=== PATIENT | female | born 1990 | race Caucasian/White ===

== ENCOUNTER → 2018-07-22 | Outpatient (CLI) | payer BC ==
[2018-07-22 11:36] LABS: Basophils % (A) 1 %; Eosinophils # (A) 0.2 k/uL (0-0.7); Eosinophils % (A) 2 %; HCT 35.6 % (34.0-46.0); Lymphocytes # (A) 1.5 k/uL (1.0-4.8); Lymphocytes % (A) 20 %; MCH 28.9 pg (25.0-35.0); MCHC 33.7 g/dL (31.0-37.0); MCV 85.8 fL (80.0-100.0); Mean Platelet Volume 7.5; Monocytes # (A) 0.4 k/uL (0-1.0); Monocytes % (A) 6 %; Neutrophils # (A) 5.1 k/uL (1.3-7.7); Neutrophils % (A) 70 %; Platelet Count 298 k/uL (150-450); RBC 4.15 m/uL (3.80-5.40); RDW 13.9 % (11.5-15.5); WBC 7.4 k/uL (3.8-10.6)
== END | disposition home or self-care (01) ==
LOC: LABPAT 10:50
PROVIDERS: ATTEND Obstetrics & Gynecology
DX: Z01.812 Encounter for preprocedural laboratory examination (principal)
CPT/HCPCS: 85025; 86850; 86900; 86901

== ENCOUNTER 2018-07-23 05:45 | Day surgery (SDC) | payer BC ==
[2018-07-22 11:34] VITALS: BMI 27.4
--- NOTE | 2018-07-22 19:01 | P.HPOB ---
History of Present Illness H&P Date: 07/22/18 Chief Complaint: Missed This is a 27-year-old female 2 para 1 with a demise diagnosed on ultrasound today. Fetus was measuring 10 weeks 5 days with no heart tones. She presented for routine visit today and was having no complaints of bleeding or cramping. She should've been 12 weeks 1 day by her last menstrual period. She did have an earlier ultrasound at 8 weeks that showed positive heart tones. She was given options of expectant management versus dilation and curettage. She wishes to proceed with surgery. Blood type is A+. Obstetrical history: . History of 1 vaginal delivery at term. Gynecologic history: No history of sexual transmitted diseases. Social history: She is . 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 Review of Systems Constitutional: Denies chills, Denies fever Eyes: denies blurred vision, denies pain Ears, nose, mouth and throat: Denies headache, Denies sore throat Cardiovascular: Denies chest pain, Denies shortness of breath Respiratory: Denies cough Gastrointestinal: Denies abdominal pain Genitourinary: Reports , Denies abnormal vaginal bleeding, Denies pelvic pain Musculoskeletal: Denies myalgias Integumentary: Denies pruritus, Denies rash Neurological: Denies numbness, Denies weakness Past Medical History Past Medical History: Asthma Additional Past Medical History / Comment(s): missed ,sport induced asthma as a child History of Any Multi-Drug Resistant Organisms: None Reported Additional Past Surgical History / Comment(s): wisdom teeth Past Anesthesia/Blood Transfusion Reactions: No Reported Reaction, Family History of Problems w/ Anesthesia Additional Past Anesthesia/Blood Transfusion Reaction / Comment(s): mom has had PONV Past Psychological History: No Psychological Hx Reported Smoking Status: Never smoker Past Alcohol Use History: Occasional Past Drug Use History: None Reported - Past Family History Mother Family Medical History: Thyroid Disorder Medications and Allergies Home Medications Medication Instructions Recorded Confirmed Type Pnv No.95/Ferrous Fum/Folic AC 1 each PO DAILY 07/22/18 07/22/18 History [ Multivitamin Tablet] Allergies Allergy/AdvReac Type Severity Reaction Status Date / Time No Known Allergies Allergy Verified 07/22/18 11:28 Exam Osteopathic Statement: *. No significant issues noted on an osteopathic structural exam other than those noted in the History and Physical/Consult. Intake and Output 07/22/18 07/22/18 07/22/18 06:59 14:59 22:59 Other: Weight 77.111 kg HEENT: Within normal limits Heart: Regular rate and rhythm Lungs: Clear to auscultation bilaterally Abdomen: Soft, nontender Pelvic exam: Uterus is slightly enlarged, nontender, retroverted, with no adnexal masses or tenderness noted. Extremities: Negative Homans Assessment and Plan (1) Missed Status: Acute Code(s): O02.1 - MISSED SNOMED Code(s): 99388556 Plan: Proceed with suction dilation and curettage. I have discussed the risks, benefits, and alternative therapies for the above- mentioned procedure and for both sedation/anesthesia as well as necessary blood products administration, if indicated, as they pertain to this patient. The patient has indicated her understanding and acceptance of the risks and procedures discussed.
[~2018-07-23 05:45] MED LIST: DEXAMETHASONE SOD PHOSPHATE 10 MG/ML 1 ML VIAL IV ONE; HYDROmorphone 0.5 MG/0.5 ML SYRINGE IVP PRN; LACTATED RINGERS 1,000 ML IV SCH; LIDOCAINE 1% 20 ML VIAL (10MG/ML) FOR IV START INTRADERMA PRN; MIDAZOLAM 2 MG/2 ML VIAL IV PRN; ONDANSETRON 4 MG/2 ML VIAL IVP ONE; Pre Op ABX Message 1 EACH MISC MISCELLANE ONE; SCOPOLAMINE 1.5MG/72HR PATCH TRANSDERM ONE
[2018-07-23] MEDS ORDERED: LIDOCAINE 1% INJ 10MG/ML (20 ML MDV) ONE (07:00)
[2018-07-23] MEDS ORDERED: MIDAZOLAM 2 MG/2 ML VIAL ONE (07:00)
[2018-07-23] MEDS ORDERED: KETOROLAC 30 MG/ML 1 ML VIAL ONE (07:00)
[2018-07-23] MEDS ORDERED: fentaNYL (PF) 50 MCG/ML 2 ML AMP ONE (07:00)
[2018-07-23] MEDS ORDERED: PROPOFOL 10 MG/ML 20 ML VIAL IV ONE (07:00)
--- NOTE | 2018-07-23 07:35 | P.OP ---
Date of Procedure: 07/23/18 Preoperative Diagnosis: Missed Postoperative Diagnosis: Same Procedure(s) Performed: Suction dilation and curettage Anesthesia: other (Mask general) Surgeon: Neeta Garay Estimated Blood Loss (ml): 50 Pathology: other (Products of conception) Condition: stable Disposition: same day Indications for Procedure: This is a 27-year-old female 2 para 1 with a demise diagnosed on ultrasound today. Fetus was measuring 10 weeks 5 days with no heart tones. She presented for routine visit today and was having no complaints of bleeding or cramping. She should've been 12 weeks 1 day by her last menstrual period. She did have an earlier ultrasound at 8 weeks that showed positive heart tones. She was given options of expectant management versus dilation and curettage. She wishes to proceed with surgery. Blood type is A+. Operative Findings: Uterus is retroverted and sounded to 14 cm. A large amount of products of conception are obtained. Description of Procedure: The patient was taken to the operating room she's placed in the dorsal lithotomy position. She is prepped and draped in the normal sterile fashion. Bladder is drained with a catheter and then removed. Examination is performed under anesthesia. Uterus is found to be enlarged and retroverted. No adnexal masses are palpated. Next a weighted speculum was placed in the patient's vagina. A right angle retractor was used to visualize the anterior lip of the cervix. The cervix was grasped with a single-tooth tenaculum. Next the uterus is sounded to 14 cm. Cervix is gently dilated with Serrano dilators. I attempted to place a 12 mm she curette but it would not through her cervix. I next attempted to place an 11 mm suction curet but this curette appeared to be cracked. I next used a 10 mm curved suction curet and was able to place a easily. Suction curetting was carried out with a large amount of tissue obtained. Next a large sharp curette was placed and minimal further tissue was obtained. Suction curetting was performed one further time to remove any blood clot. Uterus did contract fairly well. Her bleeding did slow. The single- tooth tenaculum did pull off one time in cause a small laceration in the anterior lip of the cervix. Once the tenaculum is removed this was repaired with 3-0 Vicryl suture in a running locked fashion. Good hemostasis was noted. All instruments are removed from the vagina. All sponge and needle counts are correct. Patient is then taken to recovery room in stable condition.
[2018-07-23 07:52] VITALS: TEMP 97
[2018-07-23 08:05] VITALS: RESP 16
[2018-07-23 09:21] VITALS: BP 98/67; PULSE 83
== END 2018-07-23 09:32 | disposition home or self-care (01) ==
LOC: OR 05:45
PROVIDERS: ATTEND Obstetrics & Gynecology
DX: O02.1 Missed abortion (principal); Z3A.10 10 weeks gestation of pregnancy
CPT/HCPCS: 88305; 59820; J2250; J1100; J2405; J2001; J3010; J1885; J2704

== ENCOUNTER 2018-07-27 12:53 | Emergency (ER) | payer BC ==
[2018-07-27] MEDS ORDERED: SODIUM CHLORIDE 0.9% 1,000 ML IV STA (14:31)
--- NOTE | 2018-07-27 15:06 | ED ---
General Adult HPI - General Chief complaint: Vaginal Bleeding Stated complaint: Bleeding Source: patient, RN notes reviewed, old records reviewed Mode of arrival: ambulatory Limitations: no limitations - History of Present Illness Initial comments: 27 y/o female pt presents in ED for vaginal bleeding. Patient reports that she was diagnosed with a missed last week by Dr. Garay. Pt reports that on Thursday05/15/18 she underwent a D&C by Dr Garay. Patient reports that the last 2 days she has been experiencing vaginal bleeding, clots, mild waxing and waning cramping. Patient reports that she called Dr. Barrios who was the on -call cash controller yesterday with her symptoms. She reports that he told her to continue to monitor the symptoms and to present to the ED if she was passing large clots or having significant bleeding. Patient reports that she was concerned about the amount of blood, prompting her to present to the ED. Patient states that she has been wearing pads and has been changing pads approximately 1 time per hour while she is awake. Patient however denies that she is saturating the pads entirely. Patient denies any other symptoms, patient denies chest pain, shortness of breath, syncope or presyncope, changes in vision, any other new symptoms. Systemic: Pt denies fatigue, myalgia, fever/chills, rash. Pt denies weakness, night sweats, weight loss. Neuro: Pt denies headache, visual disturbances, syncope or pre-syncope. HEENT: Pt denies ocular discharge or irritation, otalgia, rhinorrhea, pharyngitis or notable lymphadenopathy. Cardiopulmonary: Pt denies chest pain, SOB, heart palpitations, dyspnea on exertion. Abdominal/GI: Pt denies n/v/d. : Pt denies dysuria, burning w/ urination, frequency/urgency. Denies new onset urinary or bowel incontinence. MSK: Pt denies myalgia, loss of strength or function in extremities. Neuro: Pt denies new onset weakness, paresthesias. - Related Data Home Medications Medication Instructions Recorded Confirmed Pnv No.95/Ferrous Fum/Folic AC 1 tab PO DAILY 07/22/18 07/27/18 [ Multivitamin Tablet] Allergies Allergy/AdvReac Type Severity Reaction Status Date / Time No Known Allergies Allergy Verified 07/27/18 14:22 Review of Systems ROS Statement: Those systems with pertinent positive or pertinent negative responses have been documented in the HPI. ROS Other: All systems not noted in ROS Statement are negative. Past Medical History Past Medical History: Asthma Additional Past Medical History / Comment(s): missed ,sport induced asthma as a child History of Any Multi-Drug Resistant Organisms: None Reported Additional Past Surgical History / Comment(s): wisdom teeth, dnc Past Anesthesia/Blood Transfusion Reactions: No Reported Reaction, Family History of Problems w/ Anesthesia Additional Past Anesthesia/Blood Transfusion Reaction / Comment(s): mom has had PONV Past Psychological History: No Psychological Hx Reported Smoking Status: Never smoker Past Alcohol Use History: Occasional Past Drug Use History: None Reported - Past Family History Mother Family Medical History: Thyroid Disorder General Exam - General Exam Comments Initial Comments: Constitutional: NAD, AOX3, Pt has pleasant affect. HEENT: NC/AT, trachea midline, neck supple, no lymphadenopathy. Posterior pharynx non erythematous, without exudates. External ears appear normal, without discharge. Mucous membranes moist. Eyes PERRLA, EOM intact. There is no scleral icterus. No pallor noted. Cardiopulmonary: RRR, no murmurs, rubs or gallops, no JVD noted. Lungs CTAB in anterior and posterior rg. No peripheral edema. Abdominal exam: Abdomen soft and non-distended. Abdomen non-tender to palpation in all 4 quadrants. Bowel sounds active in LLQ. No hepatosplenomegaly. No ecchymosis Neuro: CN II-XII grossly intact. No nuchal rigidity. MSK: No posterior calf tenderness bilaterally, homans sign negative bilaterally. Posterior tibialis and radial pulse +2 bilaterally. Sensation intact in upper and lower extremities. Full active ROM in upper and lower extremities, 5/5 strength. : pelvic exam displayed mild amount of blood in posterior vaginal vault, closed cervix, small amount of blood at cervical os. No lesions, ulcerations or other abnormal findings. Bimanual exam did not display any cervical motion tenderness. Chaperogned by MARCIO Vick. Limitations: no limitations Course Vital Signs 07/27/18 07/27/18 07/27/18 13:37 16:34 19:12 Temperature 98.7 F Pulse Rate 109 H 82 63 Respiratory 20 18 18 Rate Blood Pressure 109/75 122/81 123/78 O2 Sat by Pulse 100 99 97 Oximetry Medical Decision Making - Medical Decision Making 27 y/o female pt presents in ED for vaginal bleeding. Patient reports that she was diagnosed with a missed last week by Dr. Garay. Pt reports that on Thursday05/15/18 she underwent a D&C by Dr Garay. Patient reports that the last 2 days she has been experiencing vaginal bleeding, clots, mild waxing and waning cramping. Pt VSS, afebrile. Physical exam displayed non tender abdomen. Pelvic exam displayed mild amount of blood in posterior vaginal vault, closed cervix, small amount of blood at cervical os. No lesions, ulcerations or other abnormal findings. Bimanual exam did not display any cervical motion tenderness. CBC displayed hemoglobin 11.1. Hemoglobin was 12.0 07/22. UA was not impressive, displayed 41 red blood cells. Transvaginal ultrasound displayed endometrium thickened measures 3 cm. No fluid collection seen. Could relate to blood clot. No retained products visualized. Case discussed in depth with Dr. Wilkins spoke with Dr. Garay on the phone about the pt. Per Dr. Garay reccomendations pt to f/u with her in the office tomorrow. Patient additionally to follow up with PCP in 1-2 days. Patient to return to ED if descends symptoms develop or if condition worsens in any way. - Lab Data Result diagrams: 07/27/18 15:13 Lab Results 07/27/18 07/27/18 Range/Units 15:13 20:22 WBC 8.2 (3.8-10.6) k/uL RBC 3.85 (3.80-5.40) m/uL Hgb 11.1 L (11.4-16.0) gm/dL Hct 32.7 L (34.0-46.0) % MCV 84.8 (80.0-100.0) fL MCH 28.7 (25.0-35.0) pg MCHC 33.8 (31.0-37.0) g/dL RDW 14.1 (11.5-15.5) % Plt Count 275 (150-450) k/uL Neutrophils % 69 % Lymphocytes % 20 % Monocytes % 6 % Eosinophils % 3 % Basophils % 1 % Neutrophils # 5.7 (1.3-7.7) k/uL Lymphocytes # 1.6 (1.0-4.8) k/uL Monocytes # 0.5 (0-1.0) k/uL Eosinophils # 0.2 (0-0.7) k/uL Basophils # 0.0 (0-0.2) k/uL Urine Color Yellow Urine Appearance Cloudy H (Clear) Urine pH 7.0 (5.0-8.0) Ur Specific [place] 1.007 (1.001-1.035) Urine Protein Trace H (Negative) Urine Glucose (UA) Negative (Negative) Urine Ketones Negative (Negative) Urine Blood Large H (Negative) Urine Nitrite Negative (Negative) Urine Bilirubin Negative (Negative) Urine Urobilinogen <2.0 (<2.0) mg/dL Ur Leukocyte Esterase Trace H (Negative) Urine RBC 41 H (0-5) /hpf Urine WBC 3 (0-5) /hpf Ur Squamous Epith Cells 3 (0-4) /hpf Amorphous Sediment Rare H (None) /hpf Urine Mucus Rare H (None) /hpf Disposition Clinical Impression: Vaginal bleeding Disposition: HOME SELF-CARE Condition: Good Instructions: Dilation and Curettage (DC) Additional Instructions: Patient to adhere to previously discussed treatment plan and will take medication(s) as directed. Patient to follow up with PCP in 1-2 days. Patient to return to ED if symptoms do not improve. Is patient prescribed a controlled substance at d/c from ED?: No Referrals: Karmen Ochoa MD [Primary Care Provider] - 1-2 days Neeta Garay DO [Family Provider] - 1-2 days Time of Disposition: 21:01
[2018-07-27 15:29] LABS: Basophils % (A) 1 %; Eosinophils # (A) 0.2 k/uL (0-0.7); Eosinophils % (A) 3 %; HCT 32.7 % (34.0-46.0); HGB 11.1 gm/dL (11.4-16.0); Lymphocytes # (A) 1.6 k/uL (1.0-4.8); Lymphocytes % (A) 20 %; MCH 28.7 pg (25.0-35.0); MCHC 33.8 g/dL (31.0-37.0); MCV 84.8 fL (80.0-100.0); Mean Platelet Volume 7.5; Monocytes # (A) 0.5 k/uL (0-1.0); Monocytes % (A) 6 %; Neutrophils # (A) 5.7 k/uL (1.3-7.7); Neutrophils % (A) 69 %; Platelet Count 275 k/uL (150-450); RBC 3.85 m/uL (3.80-5.40); RDW 14.1 % (11.5-15.5); WBC 8.2 k/uL (3.8-10.6)
--- NOTE | 2018-07-27 18:20 | US ---
EXAMINATION TYPE: US transvaginal DATE OF EXAM: 07/27/2018 COMPARISON: NONE CLINICAL HISTORY: Pain. Bleeding had a D&C on thursday. TECHNIQUE: Transvaginal (TV). EXAM MEASUREMENTS: Uterus: 8.6 x 6.7 x 7.1 cm Endometrial Stripe: 2.8 cm 1. Uterus: Retroverted wnl 2. Endometrium: wnl 3. Right Ovary: Obscured by overlying bowel gas 4. Left Ovary: Obscured by overlying bowel gas 5. Bilateral Adnexa: wnl 6. Posterior cul-de-sac: wnl No retained products visualized. IMPRESSION: Endometrium is thickened and measures 3 cm. No fluid collection seen. This could relate blood clot.
[2018-07-27 20:56] LABS: Amorphous Sediment,Urine Rare /hpf; Appearance,Urine Cloudy (Clear); Bilirubin,Urine Negative (Negative); Blood,Urine Large (Negative); Color,Urine Yellow; Glucose,Urine (UA) Negative (Negative); Ketones,Urine Negative (Negative); Leukocyte Esterase,Urine Trace (Negative); Mucus,Urine Rare /hpf; Nitrite,Urine Negative (Negative); Protein,Urine Trace (Negative); RBC,Urine 41 /hpf (0-5); Specific Gravity,Urine 1.007 (1.001-1.035); Squamous Epithelial Cell,Urine 3 /hpf (0-4); Urobilinogen,Urine <2.0 mg/dL (<2.0)
[2018-07-27 21:15] VITALS: BP 110/68; PULSE 82; RESP 16; TEMP 97.8
== END 2018-07-27 21:15 | disposition home or self-care (01) ==
LOC: EC 12:53
DX: N93.9 Abnormal uterine and vaginal bleeding, unspecified (principal); Z98.890 Other specified postprocedural states
CPT/HCPCS: 36415; 76830; 81001; 85025; 96360; 96361; 99284

== ENCOUNTER → 2018-09-02 | Outpatient (CLI) | payer BC ==
[2018-09-02 12:39] LABS: Basophils # (A) 0.1 k/uL (0-0.2); Basophils % (A) 1 %; Eosinophils # (A) 0.1 k/uL (0-0.7); Eosinophils % (A) 1 %; HCT 38.1 % (34.0-46.0); HGB 12.4 gm/dL (11.4-16.0); Lymphocytes % (A) 20 %; MCH 27.8 pg (25.0-35.0); MCHC 32.6 g/dL (31.0-37.0); MCV 85.3 fL (80.0-100.0); Mean Platelet Volume 7.7; Monocytes # (A) 0.5 k/uL (0-1.0); Monocytes % (A) 5 %; Neutrophils # (A) 7.1 k/uL (1.3-7.7); Neutrophils % (A) 72 %; Platelet Count 355 k/uL (150-450); RBC 4.46 m/uL (3.80-5.40)
== END | disposition home or self-care (01) ==
LOC: LABPAT 11:31
PROVIDERS: ATTEND Obstetrics & Gynecology
DX: Z01.812 Encounter for preprocedural laboratory examination (principal)
CPT/HCPCS: 84702; 85025

== ENCOUNTER 2018-09-03 08:25 | Day surgery (SDC) | payer BC ==
[2018-09-02 12:31] VITALS: BMI 25.8
--- NOTE | 2018-09-02 19:55 | P.HPOB ---
History of Present Illness H&P Date: 09/02/18 Chief Complaint: Endometrial thickening, menorrhagia with irregular cycle This is a 27 rolled female 2 para 1 who had a recent miscarriage on and underwent a dilation and curettage for missed . She did have some heavier bleeding after her D&C and was seen in the emergency room on 07/27/2018 and then her bleeding slowed after that. She had an ultrasound in the emergency room that showed an endometrial thickness of 3 cm but blood clot was noted. Ultrasound on 09/02/2018 showed a endometrium thickened to 1.3 cm and heterogeneous with fluid seen within. Patient states she has been bleeding for the last 2 weeks with spotting off and on. This started after what she felt was a normal period that lasted 4-5 days. That period started on August 18. She was given options of attempting to use Provera to thin the lining versus proceeding with dilation and curettage. She wishes to proceed with dilation and curettage to get her bleeding to resolve so that she can attempt again soon. She was counseled on risk of Asherman syndrome and infection. Review of Systems Constitutional: Denies chills, Denies fever Ears, nose, mouth and throat: Denies headache, Denies sore throat Cardiovascular: Denies chest pain, Denies shortness of breath Respiratory: Denies cough Gastrointestinal: Denies abdominal pain, Denies diarrhea, Denies nausea, Denies vomiting Genitourinary: Reports abnormal vaginal bleeding, Reports pelvic pain Menstruation: Reports menses 8 or > days, Reports period spotting Musculoskeletal: Denies myalgias Integumentary: Denies pruritus, Denies rash Neurological: Denies numbness, Denies weakness Psychiatric: Denies anxiety, Denies depression Endocrine: Denies fatigue, Denies weight change Past Medical History Past Medical History: Asthma Additional Past Medical History / Comment(s): Missed with D&C 07/22/18 , sport 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 History of Any Multi-Drug Resistant Organisms: None Reported Additional Past Surgical History / Comment(s): [place] teeth, D&C. Past Anesthesia/Blood Transfusion Reactions: No Reported Reaction, Family History of Problems w/ Anesthesia Additional Past Anesthesia/Blood Transfusion Reaction / Comment(s): Mom has had PONV. Past Psychological History: No Psychological Hx Reported Smoking Status: Never smoker Past Alcohol Use History: Occasional Past Drug Use History: None Reported - Past Family History Mother Family Medical History: Thyroid Disorder Medications and Allergies Home Medications Medication Instructions Recorded Confirmed Type Pnv No.95/Ferrous Fum/Folic AC 1 tab PO DAILY 07/22/18 09/02/18 History [ Multivitamin Tablet] [place]-3 Fatty Acids/Fish Oil [Fish 1 each PO DAILY 09/02/18 09/02/18 History Oil 1,000 mg Softgel] Allergies Allergy/AdvReac Type Severity Reaction Status Date / Time No Known Allergies Allergy Verified 09/02/18 12:31 Exam Osteopathic Statement: *. No significant issues noted on an osteopathic structural exam other than those noted in the History and Physical/Consult. Intake and Output 09/02/18 09/02/18 09/02/18 06:59 14:59 22:59 Other: Weight 72.575 kg HEENT: Within normal limits Heart: Regular rate and rhythm Lungs: Clear to auscultation bilaterally Abdomen: Soft, and nontender Pelvic exam: Uterus is retroverted, with mild tenderness, no adnexal masses or tenderness noted. Scant brown discharge is noted. Extremities: Negative Homans Assessment and Plan (1) Menorrhagia with irregular cycle Status: Acute Code(s): N92.1 - EXCESSIVE AND FREQUENT MENSTRUATION WITH IRREGULAR CYCLE SNOMED Code(s): 186897234 (2) Endometrial thickening on ultrasound Status: Acute Code(s): R93.89 - ABNORMAL FINDINGS ON DX IMAGING OF OTH BODY STRUCTURES SNOMED Code(s): 693463990 Plan: Proceed with dilation and curettage with hysteroscopy. I have discussed the risks, benefits, and alternative therapies for the above- mentioned procedure and for both sedation/anesthesia as well as necessary blood products administration, if indicated, as they pertain to this patient. The patient has indicated her understanding and acceptance of the risks and procedures discussed.
[~2018-09-03 08:25] MED LIST changes: -LIDOCAINE 1% 20 ML VIAL (10MG/ML) FOR IV START INTRADERMA PRN
[2018-09-03 08:57] VITALS: RESP 16
[2018-09-03] MEDS ORDERED: LIDOCAINE 1% 20 ML VIAL (10MG/ML) FOR IV START INTRADERMA ONE (09:12)
[2018-09-03] MEDS ORDERED: KETOROLAC 30 MG/ML 1 ML VIAL ONE (09:43)
[2018-09-03] MEDS ORDERED: PROPOFOL 10 MG/ML 20 ML VIAL IV ONE (09:43)
[2018-09-03] MEDS ORDERED: MIDAZOLAM 2 MG/2 ML VIAL ONE (09:43)
[2018-09-03] MEDS ORDERED: fentaNYL (PF) 50 MCG/ML 2 ML AMP ONE (09:43)
[2018-09-03] MEDS ORDERED: LIDOCAINE 1% INJ 10MG/ML (20 ML MDV) ONE (09:43)
--- NOTE | 2018-09-03 10:12 | P.OP ---
Date of Procedure: 09/03/18 Preoperative Diagnosis: Menorrhagia with irregular cycle Endometrial thickening Postoperative Diagnosis: Same Procedure(s) Performed: Dilation and curettage with hysteroscopy Anesthesia: other (Mask general) Surgeon: Neeta Garay Estimated Blood Loss (ml): 5 Pathology: other (Endometrial curettings) Condition: stable Disposition: same day Indications for Procedure: This is a 27 rolled female 2 para 1 who had a recent miscarriage on and underwent a dilation and curettage for missed . She did have some heavier bleeding after her D&C and was seen in the emergency room on 07/27/2018 and then her bleeding slowed after that. She had an ultrasound in the emergency room that showed an endometrial thickness of 3 cm but blood clot was noted. Ultrasound on 09/02/2018 showed a endometrium thickened to 1.3 cm and heterogeneous with fluid seen within. Patient states she has been bleeding for the last 2 weeks with spotting off and on. This started after what she felt was a normal period that lasted 4-5 days. That period started on August 18. She was given options of attempting to use Provera to thin the lining versus proceeding with dilation and curettage. She wishes to proceed with dilation and curettage to get her bleeding to resolve so that she can attempt again soon. She was counseled on risk of Asherman syndrome and infection. Operative Findings: Uterus is retroverted and sounded to 9-1/2 cm. Upon hysteroscopy, a slightly thicker posterior border was noted with some dyssynchronous pattern. Both tubal ostia are visualized. No adnexal masses are palpated. Description of Procedure: The patient is taken to the operating room she's placed in the dorsal lithotomy position. She is prepped and draped in the normal sterile fashion. Bladder is drained with a catheter and then removed. Examination is performed under anesthesia. Uterus is found to be retroverted with no adnexal masses palpated. Next a weighted speculum was placed in the patient's vagina. A right angle retractor is used to visualize the cervix. The anterior lip of the cervix is grasped with a single-tooth tenaculum. Next the cervix is sounded to 3-1/2 cm and the uterus is sounded to 9-1/2 cm. Cervix is gently dilated with Serrano dilators until a hysteroscope could be passed. Hysteroscopy is performed using normal saline. The above noted findings are made and pictures are taken. Next the cervix is gently dilated further. A polyp first was introduced with a small amount of tissue obtained that appeared to be possible old retained products. Next a medium-size sharp curet was introduced and sharp curettage was performed until a gritty texture was noted. A moderate amount of tissue was obtained with a few areas that may have been possible old retained products of conception. Tissue sent to pathology. The single-tooth tenaculum is removed. Minimal bleeding is noted. All other instruments are removed from the vagina. All sponge counts are correct. Patient is taken to recovery room in stable condition.
[2018-09-03 10:24] VITALS: TEMP 98.2
[2018-09-03 11:17] VITALS: BP 103/68; PULSE 79
== END 2018-09-03 11:43 | disposition home or self-care (01) ==
LOC: OR 08:25
PROVIDERS: ATTEND Obstetrics & Gynecology
DX: N92.0 Excessive and frequent menstruation with regular cycle (principal); R93.89 Abnormal findings on diagnostic imaging of other specified body structures
CPT/HCPCS: 81025; 88305; 58558; J2250; J1100; J2405; J2001; J3010; J1885; J2704

== ENCOUNTER 2019-06-03 19:23 | Inpatient (IN) | payer BC ==
--- NOTE | 2019-06-03 20:25 | P.HPOB ---
History of Present Illness H&P Date: 06/03/19 Chief Complaint: Spontaneous rupture of membranes This is a 28-year-old female 3 para 1 with an estimated date of confinement of 06/18/2019, estimated gestational age of 37-6/7 weeks, who presents to labor and delivery with spontaneous rupture membranes with clear fl uid noted. She began feeling some contractions shortly thereafter. Her course had been complicated by some polyhydramnios that did resolve. labs: Hepatitis B surface antigen-negative RPR-nonreactive Rubella-immune Blood type-A+ Antibody screen-negative Hemoglobin-13.1 Toxoplasma screen-negative Random glucose-89 One hour Glucola-128 Group B streptococcus-negative Obstetrical history: . History of 1 vaginal delivery at term. History of 1 miscarriage that did require D&C. Gynecologic history: No history of sexual transmitted diseases. She does have a history of abnormal Pap smears with low-grade. Social history: She is . 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 History of Any Multi-Drug Resistant Organisms: None Reported Additional Past Surgical History / Comment(s): [place] teeth, D&C. Past Anesthesia/Blood Transfusion Reactions: No Reported Reaction, Family History of Problems w/ Anesthesia Additional Past Anesthesia/Blood Transfusion Reaction / Comment(s): Mom has had PONV. Past Psychological History: No Psychological Hx Reported Smoking Status: Never smoker Past Alcohol Use History: Occasional Past Drug Use History: None Reported - Past Family History Mother Family Medical History: Thyroid Disorder Medications and Allergies Home Medications Medication Instructions Recorded Confirmed Type Pnv No.95/Ferrous Fum/Folic AC 1 tab PO DAILY 07/22/18 09/02/18 History [ Multivitamin Tablet] [place]-3 Fatty Acids/Fish Oil [Fish 1 each PO DAILY 09/02/18 09/02/18 History Oil 1,000 mg Softgel] Allergies Allergy/AdvReac Type Severity Reaction Status Date / Time No Known Allergies Allergy Verified 09/03/18 08:48 Exam Osteopathic Statement: *. No significant issues noted on an osteopathic struc tural exam other than those noted in the History and Physical/Consult. HEENT: Within normal limits Heart: Regular rate and rhythm Lungs: Clear to auscultation bilaterally Abdomen: Cervix: 2 cm/60%/-2 station. Grossly ruptured clear fluid. heart tones: Reactive Contractions: Every 2-3 minutes Extremities: Negative Homans Assessment and Plan (1) 37 weeks gestation of Current Visit: Yes Status: Acute Code(s): Z3A.37 - 37 WEEKS GESTATION OF SNOMED Code(s): 32924676 (2) Spontaneous rupture of membranes Current Visit: Yes Status: Acute Code(s): AAW8434 - SNOMED Code(s): 757853042 Plan: Admission for early active labor. Expectant management. Epidural anesthesia if desired. Oxytocin augmentation of labor if necessary.
[2019-06-03] MEDS: LACTATED RINGERS 1,000 ML IV SCH ×2 (20:34→22:36)
[2019-06-03] MEDS ORDERED: LIDOCAINE 0.5% (PF) 5 MG/ML (50 ML SDV) SQ PRN (20:44)
[2019-06-03] MEDS ORDERED: CARBOPROST TROMETHAMINE 250 MCG/ML 1 ML AMP IM PRN (20:44)
[2019-06-03] MEDS ORDERED: OXYTOCIN 10 UNIT/ML 1 ML VIAL IM PRN (20:44)
[2019-06-03] MEDS ORDERED: TERBUTALINE 1 MG/ML VIAL SQ PRN (20:44)
[2019-06-03] MEDS ORDERED: METHYLERGONOVINE 0.2 MG/ML 1 ML AMP IM PRN (20:44)
[2019-06-03] MEDS ORDERED: OXYTOCIN 30 UNITS/500 ML NS 30 UNIT in SALINE 1 500ML.BAG IV SCH (20:45)
[2019-06-03 21:24] LABS: Basophils % (A) 0 %; Eosinophils # (A) 0.1 k/uL (0-0.7); Eosinophils % (A) 1 %; HCT 34.4 % (34.0-46.0); HGB 11.8 gm/dL (11.4-16.0); Lymphocytes # (A) 1.6 k/uL (1.0-4.8); Lymphocytes % (A) 17 %; MCH 29.7 pg (25.0-35.0); MCHC 34.4 g/dL (31.0-37.0); MCV 86.1 fL (80.0-100.0); Mean Platelet Volume 9.8; Monocytes # (A) 0.8 k/uL (0-1.0); Monocytes % (A) 9 %; Neutrophils # (A) 6.7 k/uL (1.3-7.7); Neutrophils % (A) 70 %; Platelet Count 178 k/uL (150-450); RBC 3.99 m/uL (3.80-5.40); RDW 15.1 % (11.5-15.5); WBC 9.5 k/uL (3.8-10.6)
[2019-06-03] MEDS ORDERED: fentaNYL (PF) 50 MCG/ML 5 ML AMP ONE (22:01)
[2019-06-03] MEDS ORDERED: SODIUM CHLORIDE 0.9% 100 ML BAG ONE (22:01)
[2019-06-03] MEDS ORDERED: ROPIVACAINE 5MG/ML 20ML VIAL ONE (22:01)
[2019-06-04 00:43] VITALS: BMI 34.7
[2019-06-04] MEDS ORDERED: CITRIC ACID-SODIUM CITRATE 15 ML CUP PO ONE (04:57)
[2019-06-04] MEDS ORDERED: SODIUM CHLORIDE 0.9% 100 ML BAG ONE (05:27)
[2019-06-04] MEDS ORDERED: ONDANSETRON 4 MG/2 ML VIAL ONE (05:27)
[2019-06-04] MEDS ORDERED: KETOROLAC 30 MG/ML 1 ML VIAL ONE (05:27)
[2019-06-04] MEDS ORDERED: fentaNYL (PF) 50 MCG/ML 5 ML AMP ONE (05:27)
[2019-06-04] MEDS ORDERED: ROPIVACAINE 5MG/ML 20ML VIAL ONE (05:27)
[2019-06-04] MEDS ORDERED: MORPHINE SULFATE (PF) 0.3 MG/0.3 ML SYR ONE (05:27)
[2019-06-04] MEDS ORDERED: OXYTOCIN 10 UNIT/ML 1 ML VIAL ONE (05:27)
--- NOTE | 2019-06-04 06:17 | P.OP ---
Date of Procedure: 06/04/19 Preoperative Diagnosis: 1. Intrauterine at 38-0/7 weeks. 2. Failure to descend. Postoperative Diagnosis: Same Procedure(s) Performed: Primary low transverse section Anesthesia: epidural (Duramorph) Surgeon: Neeta Garay Production Grader #1: Reinaldo Groves Estimated Blood Loss (ml): 750 Pathology: none sent Condition: stable Disposition: floor Indications for Procedure: This is a 28-year-old female 3 para 1 at 8-0/7 weeks who presented with spontaneous rupture of membranes. She did receive epidural anesthesia and progressed to complete dilation. She pushed for over an hour with no descent of the head and increased caput. At this point the decision was made to proceed with section due to maternal exhaustion and failure to descend. I have discussed the risks, benefits, and alternative therapies for the above-me ntioned procedure and for both sedation/anesthesia as well as necessary blood products administration, if indicated, as they pertain to this patient. The patient has indicated her understanding and acceptance of the risks and procedures discussed. Operative Findings: A viable female infant is noted in the vertex presentation in occiput posterior lie with nuchal cord times one. scores are 8 at 1 minute and 9 at 5 minutes and infant weight was 9 lbs. 4 oz. Normal uterus tubes and ovaries are noted. Description of Procedure: The patient is taken to the operating room where she is placed in the dorsal supine position with leftward tilt after epidural anesthesia is bolused. She is prepped and draped in the normal sterile fashion. Skin was tested and found to be adequately anesthetized. A Pfannenstiel skin incision was made with a scalpel. A second knife was used to carry the incision down to the underlying layer of fascia. The fascia was nicked in the midline with a scalpel and then extended laterally bilaterally with Dumont scissors. The anterior lip of the fascia was grasped with 2 Bernardo clamps and then dissected off the underlying rectus muscle in the midline with Dumont scissors. The inferior aspect of the fascial incision was grasped with 2 Bernardo clamps and dissected off the underlying rectus muscle and the midline with Dumont scissors. Next the peritoneum layer was tented up with 2 hemostats and then entered sharply with the scalpel. The incision is extended superiorly and inferiorly with Metzenbaum scissors. Next a DeLee retractor is placed. The vesicouterine peritoneum is entered sharply with Metzenbaum scissors and extended laterally bilaterally with Metzenbaum scissors and then the bladder flap is pushed inferiorly. The lower uterine segment is incised in transverse fashion with the scalpel and then bluntly entered with a hemostat. Clear fluid is noted. The incision was then extended laterally bilaterally with 2 fingers. Next the 's head is delivered through the incision. Nose and mouth are bulb suctioned. The remainder of the infant is easily delivered and placed on mother's abdomen. Cord is clamped and cut. is taken to warmer by nursing staff. Uterine fundus is gently massaged and placenta is delivered manually. Uterus is exteriorized and cleared of all clots and debris. Uterine incision is closed with 0 Vicryl suture in a running locked fashion. A second layer of 0 Vicryl suture is used in a running fashion for hemostasis. Several interrupted stitches are placed for hemostasis. Once adequate hemostasis as assured, the vesicouterine peritoneum is reapproximated with 2-0 Vicryl suture in a running fashion. Posterior cul-de-sac is suctioned of all clots and debris. Uterus is returned to the abdomen. Incision is noted to be hemostatic. Peritoneal layer is closed with 0 Vicryl suture in a running fashion. Muscle layer is reapproximated with 0 Vicryl suture in interrupted fashion. Fascia layer is then closed with 0 PDS suture with 2 sutures meeting in the midline and the knots buried in either side and in the midline. The subcutaneous tissue was then closed with 2-0 Vicryl suture. Skin layer was then closed with stephany. All sponge and needle counts are correct. The urine did show some blood-tinged approximately prison through the procedure. There was noted to be significant edema over the bladder area due to maternal pushing efforts. Bladder appeared to be intact. The patient is taken to recovery room in stable condition.
[2019-06-04] MEDS ORDERED: SIMETHICONE 80 MG CHEWABLE PO PRN (06:29)
[2019-06-04] MEDS ORDERED: HYDROcodone/APAP 5-325MG 1 EACH TAB PO PRN (06:29)
[2019-06-04] MEDS ORDERED: diphenhydrAMINE 50 MG/ML 1 ML VIAL IVP PRN ×2 (06:29)
[2019-06-04] MEDS ORDERED: NALOXONE 0.4 MG/ML 1 ML VIAL IV PRN (06:29)
[2019-06-04] MEDS ORDERED: ONDANSETRON 4 MG/2 ML VIAL IVP PRN (06:29)
[2019-06-04] MEDS ORDERED: diphenhydrAMINE 50 MG CAP PO PRN (06:29)
[2019-06-04] MEDS ORDERED: ACETAMINOPHEN TAB 325 MG TAB PO PRN (06:29)
[2019-06-04] MEDS ORDERED: diphenhydrAMINE 25 MG CAP PO PRN (06:29)
[2019-06-04] MEDS ORDERED: OXYTOCIN 20 UNITS/1000 ML NS 1,000 ML IV SCH (06:29)
[2019-06-04] MEDS ORDERED: ZOLPIDEM 5 MG TAB PO PRN (06:29)
[2019-06-04] MEDS ORDERED: LANOLIN CREAM 5 GM TUBE TOPICAL PRN (06:29)
[2019-06-04] MEDS ORDERED: METOCLOPRAMIDE 5 MG/ML 2 ML VIAL IVP PRN (06:29)
[2019-06-04 06:55] VITALS: RESP 16
[2019-06-04] MEDS: SENNOSIDES-DOCUSATE SODIUM 1 EACH TAB PO SCH ×2 (08:10→23:32)
[2019-06-04] MEDS: PRENATAL VIT-IRON-FOLIC ACID 1 EACH CAP PO SCH (09:35)
[2019-06-04] MEDS: KETOROLAC 30 MG/ML 1 ML VIAL IVP PRN ×2 (12:22→23:34)
[2019-06-05 06:38] LABS: Basophils % (A) 0 %; Eosinophils # (A) 0.1 k/uL (0-0.7); Eosinophils % (A) 1 %; HCT 27.9 % (34.0-46.0); Lymphocytes # (A) 1.2 k/uL (1.0-4.8); Lymphocytes % (A) 8 %; MCH 29.8 pg (25.0-35.0); MCHC 34.1 g/dL (31.0-37.0); MCV 87.3 fL (80.0-100.0); Mean Platelet Volume 10.6; Monocytes # (A) 0.7 k/uL (0-1.0); Monocytes % (A) 5 %; Neutrophils # (A) 12.9 k/uL (1.3-7.7); Neutrophils % (A) 85 %; Platelet Count 145 k/uL (150-450); RDW 15.4 % (11.5-15.5); WBC 15.2 k/uL (3.8-10.6)
[2019-06-05 06:45] LABS: HGB 9.5 gm/dL (11.4-16.0)
--- NOTE | 2019-06-05 07:24 | P.PN ---
Progress Note - Text Progress Note Date: 06/05/19 Patient without complaints. Ambulating without weakness or paresthesia. Pain controlled. Mild pruritis. Denies headache. VSS Back - epidural site clean and dry A/P POD#1 s/p with epidural duramorph - doing well
[2019-06-05] MEDS: KETOROLAC 30 MG/ML 1 ML VIAL IVP PRN (07:41)
--- NOTE | 2019-06-05 07:49 | P.PNOBGPC ---
Subjective - Subjective Principal diagnosis: Status post primary section postoperative day #1 Interval history: Patient is doing okay. Lochia is decreasing. Her pain is fairly well controlled. She is breast-feeding. Baby did need to go to the nursery for phototherapy. She has passing flatus but no bowel movement yet. Patient reports: Reports appetite normal, Reports voiding normally, Reports pain well controlled, Reports ambulating normally [place]: doing well, nursing well Objective - Vital Signs Latest vital signs: Vital Signs Temp Pulse Resp BP Pulse Ox 06/05/19 04:00 98.3 F 84 16 95/51 06/05/19 00:00 98.9 F 96 16 94/58 99 06/04/19 20:00 98.0 F 97 16 109/61 98 06/04/19 16:00 98.7 F 78 16 100 06/04/19 12:00 98.4 F 78 16 108/68 96 06/04/19 08:23 98.6 F 83 16 107/58 99 06/04/19 07:53 86 16 104/56 99 Intake and Output 06/04/19 06/05/19 06/05/19 22:59 06:59 14:59 Intake Total 1024.5 Output Total 1100 Balance -1100 1024.5 Intake: Intake, IV Titration 1024.5 Amount HYDROmorphone (PF) 10 mg 24.5 In Sodium Chloride 0.9% 49 ml @ Per Protocol IV PER PROTOCOL PRN Rx#: [id number] Lactated Ringers 1,000 ml 1000 @ 125 mls/hr IV .Q8H YULIET Rx#:[id number] Output: Urine 1100 Uretheral ([place]) 400 Other: # Voids 2 - Exam Extremities: Present: edema. Absent: tenderness Abdomen: Present: normal appearance, soft (Positive bowel sounds 4). Absent: distention, tenderness Incision: Present: normal, dry, intact. Absent: erythematous Uterus: Present: normal, firm. Absent: tenderness - Labs Labs: Abnormal Lab Results - Last 24 Hours (Table) 06/05/19 Range/Units 06:21 WBC 15.2 H (3.8-10.6) k/uL RBC 3.20 L (3.80-5.40) m/uL Hgb 9.5 L D (11.4-16.0) gm/dL Hct 27.9 L (34.0-46.0) % Plt Count 145 L (150-450) k/uL Neutrophils # 12.9 H (1.3-7.7) k/uL Assessment and Plan Assessment: Status post primary section postoperative day #1 (1) 37 weeks gestation of Current Visit: Yes Status: Acute Code(s): Z3A.37 - 37 WEEKS GESTATION OF SNOMED Code(s): 88567009 (2) Spontaneous rupture of membranes Current Visit: Yes Status: Acute Code(s): AJX8173 - SNOMED Code(s): 007699405 Plan: Continue with postoperative care today. Will advance diet. Encouraged ambulation.
[2019-06-05] MEDS: PRENATAL VIT-IRON-FOLIC ACID 1 EACH CAP PO SCH (08:31)
[2019-06-05] MEDS: SENNOSIDES-DOCUSATE SODIUM 1 EACH TAB PO SCH ×2 (08:31→20:31)
[2019-06-05] MEDS: IBUPROFEN 600 MG TAB PO PRN (16:50)
[2019-06-06] MEDS: IBUPROFEN 600 MG TAB PO PRN ×3 (00:28→16:12)
[2019-06-06] MEDS: HYDROcodone/APAP 7.5-325MG 1 EACH TAB PO PRN ×3 (03:11→18:09)
[2019-06-06] MEDS: SENNOSIDES-DOCUSATE SODIUM 1 EACH TAB PO SCH (08:15)
--- NOTE | 2019-06-06 08:32 | P.PNOBGPC ---
Subjective - Subjective Principal diagnosis: Status post primary section postoperative day #2 Interval history: Patient is doing well. She is ambulate. She is working on breast-feeding. Lochia is decreasing. Pain is fairly well controlled. She is passing flatus but no bowel movement yet. Patient reports: Reports appetite normal, Reports voiding normally, Reports pain well controlled, Reports ambulating normally [place]: doing well, other (On bili light) Objective - Vital Signs Latest vital signs: Vital Signs Temp Pulse Resp BP Pulse Ox 06/06/19 00:00 98.3 F 99 16 106/55 06/05/19 16:30 98.6 F 103 H 16 113/69 100 Intake and Output 06/05/19 06/06/19 06/06/19 22:59 06:59 14:59 Other: # Voids 3 - Exam Extremities: Present: normal. Absent: tenderness Abdomen: Present: normal appearance, soft. Absent: distention, tenderness Incision: Present: normal, dry, intact. Absent: erythematous Uterus: Present: normal, firm. Absent: tenderness Assessment and Plan Assessment: Status post primary section postoperative day #2 (1) 37 weeks gestation of Current Visit: Yes Status: Acute Code(s): Z3A.37 - 37 WEEKS GESTATION OF SNOMED Code(s): 58578304 (2) Spontaneous rupture of membranes Current Visit: Yes Status: Acute Code(s): HMZ8997 - SNOMED Code(s): 883744058 Plan: Will continue with postoperative care today. Possible discharge home tomorrow if baby is ready.
[2019-06-06] MEDS: PRENATAL VIT-IRON-FOLIC ACID 1 EACH CAP PO SCH (11:21)
[2019-06-06 16:41] VITALS: BP 117/68; PULSE 62; TEMP 98.3
== END 2019-06-06 18:05 | disposition home or self-care (01) | DRG 788 ==
LOC: FBPOP 19:23 → 4FBP 19:38
PROVIDERS: ADMIT Obstetrics & Gynecology; ATTEND Obstetrics & Gynecology
PROC: 00HU33Z Insertion of Infusion Device into Spinal Canal, Percutaneous Approach (ICD-10-PCS; 2019-06-03)
PROC: 3E0R3BZ Introduction of Anesthetic Agent into Spinal Canal, Percutaneous Approach (ICD-10-PCS; 2019-06-03)
PROC: 10D00Z1 Extraction of Products of Conception, Low, Open Approach (ICD-10-PCS; principal; 2019-06-04 05:39)
DX: O32.4XX0 Maternal care for high head at term, not applicable or unspecified (principal); O75.81 Maternal exhaustion complicating labor and delivery; O69.81X0 Labor and delivery complicated by cord around neck, without compression, not applicable or unspecified; O40.9XX0 Polyhydramnios, unspecified trimester, not applicable or unspecified; Z37.0 Single live birth; Z3A.37 37 weeks gestation of pregnancy; L29.9 Pruritus, unspecified; Z79.899 Other long term (current) drug therapy; Z87.09 Personal history of other diseases of the respiratory system; Z83.49 Family history of other endocrine, nutritional and metabolic diseases
CPT/HCPCS: 85025; 86850; 86900; 86901

== ENCOUNTER 2021-03-13 15:30 | Inpatient (IN) | payer BC ==
[2021-03-13] MEDS ORDERED: CITRIC ACID-SODIUM CITRATE 15 ML CUP PO ONE (16:17)
[2021-03-13] MEDS ORDERED: LACTATED RINGERS 1,000 ML IV ONE (16:17)
[2021-03-13 16:29] LABS: Anisocytosis Slight; Basophils % (A) 0 %; Eosinophils # (A) 0.1 k/uL (0-0.7); Eosinophils % (A) 1 %; HCT 36.6 % (34.0-46.0); HGB 11.9 gm/dL (11.4-16.0); Hypochromasia Slight; Lymphocytes # (A) 1.9 k/uL (1.0-4.8); Lymphocytes % (A) 20 %; MCHC 32.5 g/dL (31.0-37.0); MCV 83.1 fL (80.0-100.0); Mean Platelet Volume 11.9; Monocytes # (A) 0.6 k/uL (0-1.0); Monocytes % (A) 6 %; Neutrophils # (A) 6.8 k/uL (1.3-7.7); Neutrophils % (A) 70 %; Platelet Count 181 k/uL (150-450); Poikilocytosis Slight; WBC 9.7 k/uL (3.8-10.6)
--- NOTE | 2021-03-13 17:28 | P.HPOB ---
History of Present Illness H&P Date: 03/13/21 Chief Complaint: Contractions This is a 30-year-old female 4 para 2 at 39-0/7 weeks with an estimated date of confinement of 03/20/2021, who presents to labor and delivery with complaints of contractions since early this morning that became stronger and more regular and currently are about every 2-3 minutes. course has been essentially uncomplicated however baby has been in the breech presentation on the last few visits. She was planning on trying to do a vaginal after but did schedule a section at her last visit. At her last visit she was 1.5 cm and 60% effaced with baby floating. Currently in triage she is 2-3 cm and 90-100% effaced with contractions every 2-3 minutes. Baby is still in breech presentation based on bedside ultrasound. In light of these findings she is being prepped for section. labs: Group B streptococcus-negative One hour Glucola-100 Hepatitis B surface antigen-negative RPR-nonreactive Rubella-immune Blood type-A+ Antibody screen-negative HIV-nonreactive Hemoglobin-12.9 Toxoplasma screen-negative Random glucose-80 Obstetrical history: . History of 1 miscarriage. History of 1 vaginal delivery at term followed by a delivery at term due to failed induction of labor. Gynecologic history: No history of sexually transmitted diseases. Social history: She is . 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 Review of Systems Constitutional: Denies chills, Denies fever Eyes: denies blurred vision, denies pain Ears, nose, mouth and throat: Denies headache, Denies sore throat Cardiovascular: Denies chest pain, Denies shortness of breath Gastrointestinal: Reports abdominal pain (Contractions) Genitourinary: Reports pelvic pain, Reports Musculoskeletal: Reports low back pain Integumentary: Denies pruritus, Denies rash Neurological: Denies numbness, Denies weakness Psychiatric: Denies anxiety, Denies depression Past Medical History Past Medical History: Asthma Additional Past Medical History / Comment(s): Missed with D&C 07/22/18, sport 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 History of Any Multi-Drug Resistant Organisms: None Reported Past Surgical History: Section Additional Past Surgical History / Comment(s): [place] teeth, D&C. Past Anesthesia/Blood Transfusion Reactions: No Reported Reaction, Family History of Problems w/ Anesthesia Additional Past Anesthesia/Blood Transfusion Reaction / Comment(s): Mom has had PONV. Past Psychological History: No Psychological Hx Reported Smoking Status: Never smoker Past Alcohol Use History: None Reported Additional Past Alcohol Use History / Comment(s): NOT CURRENTLY USING ALCOHOL Past Drug Use History: None Reported - Past Family History Mother Family Medical History: Thyroid Disorder Medications and Allergies Home Medications Medication Instructions Recorded Confirmed Type Pnv No.95/Ferrous Fum/Folic AC 1 tab PO DAILY 07/22/18 03/13/21 History [ Multivitamin Tablet] Allergies Allergy/AdvReac Type Severity Reaction Status Date / Time No Known Allergies Allergy Verified 03/13/21 16:17 Exam Osteopathic Statement: *. No significant issues noted on an osteopathic structural exam other than those noted in the History and Physical/Consult. Vital Signs Temp Pulse Resp BP Pulse Ox 03/13/21 16:24 97.1 F L 90 16 129/76 100 Intake and Output 03/13/21 03/13/21 03/13/21 06:59 14:59 22:59 Other: Weight 95.254 kg HEENT: Within normal limits Heart: Regular rate and rhythm Lungs: Clear to auscultation bilaterally Abdomen: , breech presentation based on bedside ultrasound heart category 1 Contractions: Every 2-3 minutes Cervix: 2-3 cm/90-100%/bulging bag with no presenting part Extremities: Negative Homans Results Result Diagrams: 03/13/21 16:18 Abnormal Lab Results - Last 24 Hours (Table) 03/13/21 Range/Units 16:18 RDW 16.0 H (11.5-15.5) % Assessment and Plan (1) 39 weeks gestation of Current Visit: Yes Status: Acute Code(s): Z3A.39 - 39 WEEKS GESTATION OF SNOMED Code(s): 57397392 (2) Breech presentation on examination Current Visit: Yes Status: Acute Code(s): O32.1XX0 - MATERNAL CARE FOR BREECH PRESENTATION, UNSP SNOMED Code(s): 9661085 (3) Previous delivery affecting Current Visit: Yes Status: Acute Code(s): O34.219 - MATERNAL CARE FOR UNSP TYPE SCAR FROM PREVIOUS DEL SNOMED Code(s): 994192920 Plan: Admission for active labor. Prep for delivery. Risks and benefits discussed in detail with patient and her . I have discussed the risks, benefits, and alternative therapies for the above- mentioned procedure and for both sedation/anesthesia as well as necessary blood products administration, if indicated, as they pertain to this patient. The patient has indicated her understanding and acceptance of the risks and procedures discussed.
[2021-03-13] MEDS ORDERED: ALBUMIN HUMAN 5% (25gm) 500 ML VIAL IVPB ONE (17:38)
[2021-03-13] MEDS ORDERED: DEXAMETHASONE SOD PHOSPHATE 4 MG/ML 1 ML VIAL ONE (17:38)
[2021-03-13] MEDS ORDERED: HYDROmorphone (PF) 1 MG/ML ONE (17:38)
[2021-03-13] MEDS ORDERED: OXYTOCIN 10 UNIT/ML 1 ML VIAL ONE (17:38)
[2021-03-13] MEDS ORDERED: OXYTOCIN 30 UNITS/500 ML NS BAG IV ONE (17:38)
[2021-03-13] MEDS ORDERED: fentaNYL (PF) 50 MCG/ML 2 ML AMP ONE (17:38)
[2021-03-13] MEDS ORDERED: ONDANSETRON 4 MG/2 ML VIAL ONE (17:38)
[2021-03-13] MEDS ORDERED: PHENYLEPHRINE-0.9% NACL SYG 1,000 MCG/10 ML SYRINGE ONE (17:38)
[2021-03-13] MEDS ORDERED: MORPHINE SULFATE (PF) 0.3 MG/0.3 ML SYR ONE (17:38)
[2021-03-13] MEDS ORDERED: ALBUMIN HUMAN 5% 500 ML in EMPTY BAG 1 BAG IVPB STA ×2 (18:14→18:26)
[2021-03-13] MEDS ORDERED: CELLULOSE,OXIDIZED 1 EACH EACH MISCELLANE ONE (18:30)
[2021-03-13] MEDS: OXYTOCIN 30 UNITS/500 ML NS 30 UNIT in SALINE 1 500ML.BAG IV SCH (19:00)
[2021-03-13] MEDS ORDERED: ZOLPIDEM 5 MG TAB PO PRN (19:01)
[2021-03-13] MEDS ORDERED: ONDANSETRON 4 MG/2 ML VIAL IVP PRN (19:01)
[2021-03-13] MEDS ORDERED: diphenhydrAMINE 25 MG CAP PO PRN (19:01)
[2021-03-13] MEDS ORDERED: diphenhydrAMINE 50 MG/ML 1 ML VIAL IVP PRN ×2 (19:01)
[2021-03-13] MEDS ORDERED: LANOLIN CREAM 5 GM TUBE TOPICAL PRN (19:01)
[2021-03-13] MEDS ORDERED: METOCLOPRAMIDE 5 MG/ML 2 ML VIAL IVP PRN (19:01)
[2021-03-13] MEDS ORDERED: NALOXONE 0.4 MG/ML 1 ML VIAL IV PRN (19:01)
[2021-03-13] MEDS ORDERED: diphenhydrAMINE 50 MG CAP PO PRN (19:01)
[2021-03-13 19:23] LABS: Anisocytosis Slight; HCT 24.8 % (34.0-46.0); MCH 27.8 pg (25.0-35.0); MCHC 33.6 g/dL (31.0-37.0); MCV 82.8 fL (80.0-100.0); Mean Platelet Volume 12.3; Platelet Count 139 k/uL (150-450); Poikilocytosis Slight; RDW 16.1 % (11.5-15.5); WBC 18.1 k/uL (3.8-10.6)
[2021-03-13 19:25] LABS: HGB 8.3 gm/dL (11.4-16.0)
--- NOTE | 2021-03-13 19:27 | P.OP ---
Date of Procedure: 03/13/21 Preoperative Diagnosis: 1. Intrauterine at 39-0/7 weeks. 2. History of previous section. 3. Breech presentation. 4. Active labor. Postoperative Diagnosis: 1. Intrauterine at 39-0/7 weeks. 2. History of previous section. 3. Active labor. 4. Transverse lie. Procedure(s) Performed: Repeat low transverse section with T extension Anesthesia: spinal (Duramorph) Surgeon: Neeta Garay Improvement Nurse #1: Justyna Ortiz Estimated Blood Loss (ml): 1,150 IV fluids (ml): 1,000 (1000 albumin) Urine output (ml): 500 Pathology: other (Placenta) Condition: stable Disposition: floor Indications for Procedure: This is a 30-year-old female 4 para 2 at 39-0/7 weeks who presents for complaints of contractions. She is found to be in active labor with a cervix of 2-3 cm and 90% effaced tracting every 2-3 minutes. On bedside ultrasound it appears the baby is in the breech presentation. She does have a history of a previous section. She agrees to proceed with repeat section. I have discussed the risks, benefits, and alternative therapies for the above- mentioned procedure and for both sedation/anesthesia as well as necessary blood products administration, if indicated, as they pertain to this patient. The patient has indicated her understanding and acceptance of the risks and procedures discussed. Operative Findings: A viable male is noted in the transverse lie with the head to the right side of the uterus and back down. scores are 4 at 1 minute, 8 at 5 minutes, and 10 at 10 minutes. Infant weight is 9 lbs. 6 oz. Normal uterus tubes and ovaries are noted. Description of Procedure: The patient is taken to the operating room and she is placed in the dorsal supine position with leftward tilt after spinal Duramorph anesthesia is given. Is prepped and draped in the normal sterile fashion. Timeout is completed. Her skin was tested with a hemostat and found to be adequately anesthetized. A skin incision was made with a scalpel through the previous laparotomy scar. A second knife was used to carry the incision down to the underlying fascia. The fascia was nicked in the midline and then extended bilaterally with Dumont scissors. The superior aspect of the fascial incision was grasped with Bernardo clamps, and dissected off the underlying rectus muscle in the midline with Dumont scissors. The inferior aspect of the fascial incision was grasped with Bernardo clamps and dissected off the underlying rectus muscle in the midline with Dumont scissors. Next the peritoneum was tented up with 2 hemostats and entered sharply with a scalpel. The peritoneum was then extended superiorly and in fairly with Metzenbaum scissors. The bladder was then pushed inferiorly with a DeLee retractor. The vesicouterine peritoneum was entered sharply with Metzenbaum scissors and then extended laterally bilaterally with Metzenbaum scissors. The bladder was then pushed inferiorly. The lower uterine segment is then incised in a transverse fashion with the scalpel and then entered bluntly with a hemostat. Clear fluid is noted. Next the incision is extended bilaterally with 2 fingers. Initially immediately the right arm protruded through the incision. The arm was pushed back in an attempt was made to turn the baby to breech. This was extremely difficult since the baby was in the back down lie in the right arm kept coming down through the incision. The incision was then cut upward in a T with bandage scissors. At first we were unable to turn the baby to the breech lie and tried to turn the baby to a vertex presentation. This did not work. We were finally able to get the arm to stay up and was held with one physician and then I was able turn the baby to a breech presentation. The buttocks was delivered through the incision followed by each leg, the trunk, and then the head. Nuchal cord times one was reduced around the head with delivery. Terminal meconium is noted. Cord is clamped and cut and was immediately taken to nursery for resuscitation with entertainment reporter present. Placenta is delivered intact and the uterus is cleared of all clots and debris. Uterus is exteriorized. The left uterine artery does appear to be along with the left round ligament. The left side of the incision is sutured with 0 Vicryl suture in a running locked fashion up to the midline of the incision. Once good hemostasis is noted on the left corner, the T part of the incision is inspected. The vertical portion of the incision is closed with 0 Vicryl suture in a running lock fashion with 2 layers. Next the left-sided the incision is closed in the running locked fashion with 0 Vicryl suture towards the midline. Next a third suture of 0 Vicryl is used to suture along the transverse incision in a running locked fashion for hemostasis including the round ligament and tacking it to the left side of the incision. Several interrupted stitches are placed for good hemostasis. Once excellent hemostasis is noted, the decision is made not to tack the bladder back up since everything did appear very dry at this point. The posterior cul-de-sac is suctioned of all clots and debris. The uterus is returned to the abdomen. Good hemostasis is noted. Next Surgicel is placed over the left side of the incision and then Interceed is placed over the T portion of the incision. Next the peritoneum is closed with 0 Vicryl suture in a running fashion. The muscle layer is reapproximated with 0 Vicryl suture in interrupted fashion. The left rectus muscle had been slightly from the lower portion of the incision and this was reapproximated with 0 Vicryl suture in interrupted fashion. Next the fascial layer was closed with 0 PDS suture with 2 sutures meeting in the midline and the knots buried on either side and in the midline. Next the subcutaneous layer is closed with 2-0 Vicryl suture in a running fashion. The skin is then closed with stephany. Throughout the procedure once it was apparent that the baby was not immediately coming out, anesthesia called for massive transfusion team and they were extremely r esponsive and the patient was given albumin. The patient is taken to recovery room in stable condition. The baby remains in level I nursery and is doing well at this time. Both mother and father were given an update regarding her surgery and what happened in surgery. Health Occupations Instructor will also speak with the family and let them know how baby is doing.
[2021-03-13 19:38] LABS: Band Neutrophils % 4 %; Eosinophils # (M) 0.18 k/uL (0-0.7); Lymphocytes # (M) 1.63 k/uL (1.0-4.8); Neutrophils % (M) 86 %; Nucleated Red Blood Cells 0 /100 WBC (0-0); Poikilocytosis (M) Present; Polychromasia Present; Total Cells Counted 100
[2021-03-14] MEDS: OXYTOCIN 30 UNITS/500 ML NS 30 UNIT in SALINE 1 500ML.BAG IV SCH (00:14)
[2021-03-14] MEDS: LACTATED RINGERS 1,000 ML IV SCH (00:15)
[2021-03-14] MEDS: ACETAMINOPHEN TAB 500 MG TAB PO SCH ×5 (00:18→21:04)
[2021-03-14] MEDS: SENNOSIDES-DOCUSATE SODIUM 1 EACH TAB PO SCH ×3 (00:18→20:06)
[2021-03-14 02:08] LABS: Anisocytosis Slight; Basophils % (A) 0 %; Eosinophils % (A) 0 %; HCT 24.6 % (34.0-46.0); HGB 7.8 gm/dL (11.4-16.0); Hypochromasia Slight; Lymphocytes # (A) 0.9 k/uL (1.0-4.8); Lymphocytes % (A) 4 %; MCH 26.8 pg (25.0-35.0); MCHC 31.9 g/dL (31.0-37.0); Mean Platelet Volume 12.7; Monocytes # (A) 0.7 k/uL (0-1.0); Monocytes % (A) 3 %; Neutrophils # (A) 20.5 k/uL (1.3-7.7); Neutrophils % (A) 92 %; Platelet Count 168 k/uL (150-450); Poikilocytosis Slight; RBC 2.92 m/uL (3.80-5.40); RDW 16.2 % (11.5-15.5); WBC 22.3 k/uL (3.8-10.6)
[2021-03-14] MEDS: KETOROLAC 15 MG/ML 1 ML VIAL IVP SCH ×4 (03:43→21:05)
[2021-03-14] MEDS: IBUPROFEN 600 MG TAB PO SCH ×3 (03:44→21:04)
--- NOTE | 2021-03-14 07:07 | P.PN ---
Progress Note - Text 03/14/21 620am 30-year-old's female status post with spinal Duramorph patient seen and evaluated for postop pain control, patient has a VAS of 0 with no complains of nausea vomiting. She does have pruritus which should resolve by the end of the day.
[2021-03-14 08:35] LABS: Basophils % (A) 0 %; Eosinophils % (A) 0 %; HCT 21.6 % (34.0-46.0); Hypochromasia Slight; Lymphocytes # (A) 1.3 k/uL (1.0-4.8); Lymphocytes % (A) 7 %; MCH 27.5 pg (25.0-35.0); MCHC 32.4 g/dL (31.0-37.0); MCV 84.8 fL (80.0-100.0); Mean Platelet Volume 13.3; Monocytes # (A) 0.9 k/uL (0-1.0); Monocytes % (A) 5 %; Neutrophils # (A) 16.5 k/uL (1.3-7.7); Neutrophils % (A) 87 %; Platelet Count 147 k/uL (150-450); Poikilocytosis Slight; RBC 2.55 m/uL (3.80-5.40)
--- NOTE | 2021-03-14 08:54 | P.PNOBGPC ---
Subjective - Subjective Principal diagnosis: Status post repeat section with T extension postoperative day #1 Interval history: Patient is doing relatively well. She denies any shortness of breath or dizziness. She denies any headache. She is tired. Baby has been back to the room and has been latching. Lochia has been minimal. Patient reports: Reports pain well controlled, Reports ambulating normally [place]: nursing well Objective - Vital Signs Latest vital signs: Vital Signs Temp Pulse Resp BP Pulse Ox 03/14/21 07:59 98 F 75 16 101/63 03/14/21 04:00 98.3 F 79 16 99/61 03/14/21 00:00 98.4 F 83 16 98/64 03/13/21 21:02 98.9 F 83 16 106/59 100 03/13/21 20:32 82 16 107/63 100 03/13/21 20:02 78 18 116/79 100 03/13/21 19:47 93 16 123/58 100 03/13/21 19:32 86 16 112/74 100 03/13/21 19:17 77 16 108/77 03/13/21 19:02 96.6 F L 79 18 117/69 97 03/13/21 16:24 97.1 F L 90 16 129/76 100 Intake and Output 03/13/21 03/14/21 03/14/21 22:59 06:59 14:59 Intake Total 497.167 Output Total 100 700 Balance -100 -202.833 Intake: Intake, IV Titration 497.167 Amount Oxytocin 30 Units/500 ml 497.167 Ns 30 unit In Saline 1 500ml.bag @ Per Protocol IV .Q0M [facility] Rx#:[id number] Output: Urine 100 700 Uretheral ([place]) 200 Other: Voiding Method Indwelling Catheter Indwelling Catheter Weight 95.254 kg - Exam Extremities: Present: normal. Absent: tenderness, edema Abdomen: Present: normal appearance, soft (Faint bowel sounds 4). Absent: distention, tenderness Incision: Present: normal, dry, intact. Absent: erythematous Uterus: Present: normal, firm. Absent: tenderness - Labs Labs: Abnormal Lab Results - Last 24 Hours (Table) 03/13/21 03/13/21 03/14/21 Range/Units 16:18 19:04 01:50 WBC 18.1 H 22.3 H (3.8-10.6) k/uL RBC 3.00 L 2.92 L (3.80-5.40) m/uL Hgb 8.3 L D 7.8 L (11.4-16.0) gm/dL Hct 24.8 L 24.6 L (34.0-46.0) % RDW 16.0 H 16.1 H 16.2 H (11.5-15.5) % Plt Count 139 L (150-450) k/uL Neutrophils # 20.5 H (1.3-7.7) k/uL Neutrophils # (Manual) 16.20 H (1.3-7.7) k/uL Lymphocytes # 0.9 L (1.0-4.8) k/uL Assessment and Plan Assessment: Status post repeat low transverse section with T extension postoperative day #1 Blood loss anemia-stable (1) 39 weeks gestation of Current Visit: Yes Status: Acute Code(s): Z3A.39 - 39 WEEKS GESTATION OF SNOMED Code(s): 92701756 (2) Breech presentation on examination Current Visit: Yes Status: Acute Code(s): O32.1XX0 - MATERNAL CARE FOR BREECH PRESENTATION, UNSP SNOMED Code(s): 9620680 (3) Previous delivery affecting Current Visit: Yes Status: Acute Code(s): O34.219 - MATERNAL CARE FOR UNSP TYPE SCAR FROM PREVIOUS DEL SNOMED Code(s): 441910535 Plan: We'll continue postoperative and care today. Will add iron supplementation. Will advance diet after flatus.
[2021-03-14] MEDS: PRENATAL VIT-IRON-FOLIC ACID 1 EACH CAP PO SCH (09:35)
[2021-03-14] MEDS: IRON PS CMPLX/VIT B12/FA 1 EACH CAP PO SCH (11:55)
[2021-03-14 13:21] LABS: Large Platelets Present
[2021-03-15] MEDS: KETOROLAC 15 MG/ML 1 ML VIAL IVP SCH ×3 (01:28→15:18)
[2021-03-15] MEDS: IBUPROFEN 600 MG TAB PO SCH ×5 (01:29→21:15)
[2021-03-15] MEDS: ACETAMINOPHEN TAB 500 MG TAB PO SCH ×3 (05:30→18:15)
[2021-03-15 07:17] LABS: Basophils % (A) 0 %; Eosinophils % (A) 0 %; Hypochromasia Slight; Lymphocytes # (A) 1.1 k/uL (1.0-4.8); Lymphocytes % (A) 9 %; MCH 28.1 pg (25.0-35.0); MCHC 34.2 g/dL (31.0-37.0); Mean Platelet Volume 11.5; Monocytes # (A) 0.5 k/uL (0-1.0); Monocytes % (A) 4 %; Neutrophils # (A) 10.4 k/uL (1.3-7.7); Neutrophils % (A) 86 %; Platelet Count 164 k/uL (150-450); Poikilocytosis Slight; RBC 2.25 m/uL (3.80-5.40); RDW 15.9 % (11.5-15.5); WBC 12.1 k/uL (3.8-10.6)
[2021-03-15 07:20] LABS: HGB 6.3 gm/dL (11.4-16.0)
[2021-03-15 07:21] LABS: HCT 18.5 % (34.0-46.0)
[2021-03-15 07:42] VITALS: RESP 16
[2021-03-15] MEDS: IRON PS CMPLX/VIT B12/FA 1 EACH CAP PO SCH (07:46)
[2021-03-15] MEDS: PRENATAL VIT-IRON-FOLIC ACID 1 EACH CAP PO SCH (07:46)
[2021-03-15] MEDS: SENNOSIDES-DOCUSATE SODIUM 1 EACH TAB PO SCH ×2 (07:46→20:58)
--- NOTE | 2021-03-15 08:58 | P.PNOBGPC ---
Subjective - Subjective Principal diagnosis: Status post repeat low transverse section with T extension POD#2 Interval history: Patient is doing okay but feels very fatigued. She denies any shortness of breath or dizziness standing or walking. Bleeding has been normal lochia. She is rest feeding. Pain has been fairly well-controlled with ibuprofen and Tylenol. She has not required any narcotic pain medication. She is passing a small amount of flatus. Patient reports: Reports appetite normal, Reports voiding normally, Reports pain well controlled, Reports ambulating normally, Denies dizzy ambulation [place]: nursing well Objective - Vital Signs Latest vital signs: Vital Signs Temp Pulse Resp BP Pulse Ox 03/15/21 07:40 98.8 F 107 H 16 97/58 98 03/14/21 23:56 89 03/14/21 23:55 98.1 F 89 15 98/62 97 03/14/21 15:26 99 F 93 14 98/60 03/14/21 12:00 99.1 F 92 14 104/59 Intake and Output 03/14/21 03/15/21 03/15/21 22:59 06:59 14:59 Other: Voiding Method Toilet - Exam Extremities: Present: normal. Absent: tenderness Abdomen: Present: normal appearance, soft. Absent: distention, tenderness Incision: Present: normal, dry, intact. Absent: erythematous Uterus: Present: normal, firm. Absent: tenderness - Labs Labs: Abnormal Lab Results - Last 24 Hours (Table) 03/14/21 03/15/21 Range/Units 07:44 06:43 WBC 19.0 H 12.1 H (3.8-10.6) k/uL RBC 2.55 L 2.25 L (3.80-5.40) m/uL Hgb 7.0 L 6.3 L* (11.4-16.0) gm/dL Hct 21.6 L 18.5 L* (34.0-46.0) % RDW 16.0 H 15.9 H (11.5-15.5) % Plt Count 147 L (150-450) k/uL Neutrophils # 16.5 H 10.4 H (1.3-7.7) k/uL Assessment and Plan Assessment: Status post repeat low transverse section with T extension postoperative day #2 Blood loss anemia-symptomatic with hemoglobin less than 7 today (1) 39 weeks gestation of Current Visit: Yes Status: Acute Code(s): Z3A.39 - 39 WEEKS GESTATION OF SNOMED Code(s): 01529285 (2) Breech presentation on examination Current Visit: Yes Status: Acute Code(s): O32.1XX0 - MATERNAL CARE FOR BREECH PRESENTATION, UNSP SNOMED Code(s): 7769741 (3) Previous delivery affecting Current Visit: Yes Status: Acute Code(s): O34.219 - MATERNAL CARE FOR UNSP TYPE SCAR FROM PREVIOUS DEL SNOMED Code(s): 993801020 Plan: Patient was counseled on risks and benefits of blood transfusion. She has agreed to 1 unit of packed red blood cells. This will be started today. Will recheck CBC again tomorrow morning. We will continue with iron and regular diet. Anticipate discharge home possibly tomorrow. Patient was also counseled on risks and benefits of opioid use. She will be given a prescription for [place] to go home with if needed. She will sign a opioid consent form. She is advised to follow up in the office in 1 week for postoperative check after discharge from the hospital. Dr. Edwards will be covering this weekend.
[2021-03-15] MEDS: LACTATED RINGERS 1,000 ML IV SCH (15:17)
[2021-03-16] MEDS: ACETAMINOPHEN TAB 500 MG TAB PO SCH ×2 (00:42→06:46)
[2021-03-16] MEDS: IBUPROFEN 600 MG TAB PO SCH ×2 (03:53→10:39)
[2021-03-16] MEDS: SENNOSIDES-DOCUSATE SODIUM 1 EACH TAB PO SCH (08:04)
[2021-03-16 08:44] LABS: Basophils % (A) 0 %; Eosinophils # (A) 0.2 k/uL (0-0.7); Eosinophils % (A) 2 %; HCT 21.5 % (34.0-46.0); Hypochromasia Slight; Lymphocytes # (A) 1.4 k/uL (1.0-4.8); Lymphocytes % (A) 14 %; MCH 27.9 pg (25.0-35.0); MCHC 32.7 g/dL (31.0-37.0); MCV 85.5 fL (80.0-100.0); Mean Platelet Volume 10.3; Monocytes # (A) 0.4 k/uL (0-1.0); Monocytes % (A) 4 %; Neutrophils # (A) 7.7 k/uL (1.3-7.7); Neutrophils % (A) 78 %; Platelet Count 204 k/uL (150-450); Poikilocytosis Slight; RBC 2.52 m/uL (3.80-5.40); RDW 15.9 % (11.5-15.5); WBC 9.9 k/uL (3.8-10.6)
[2021-03-16] MEDS: IRON PS CMPLX/VIT B12/FA 1 EACH CAP PO SCH (09:05)
[2021-03-16] MEDS: PRENATAL VIT-IRON-FOLIC ACID 1 EACH CAP PO SCH (09:05)
--- NOTE | 2021-03-16 10:22 | P.DS ---
Providers Date of admission: 03/13/21 16:14 Expected date of discharge: 03/16/21 Attending physician: Neeta Garay Primary care physician: Neeta Garay - Discharge Diagnosis(es) (1) Status post repeat low transverse section Current Visit: Yes Status: Acute (2) Anemia associated with acute blood loss Current Visit: Yes Status: Acute Hospital Course: Patient presented for repeat . She underwent this procedure with some difficulty, please see dictated note on this for more details. Postoperatively her hemoglobin did decrease and she was tachycardic and mildly symptomatic from her anemia. Dr. Garay did give her 1 unit of blood yesterday her hemoglobin went from 6.3-7 today. Patient is not tachycardic she does not feel lightheaded when she gets up no headache no vision changes. Her bleeding is minimal and her pain is well-controlled. She'll be discharged home postoperative day #3 in stable condition to follow-up with Dr. Garay next week. Plan - Discharge Summary New Discharge Prescriptions: [place] Ps Cmplx/Vit B12/FA [Niferex-150 Forte] 1 each PO DAILY #30 cap HYDROcodone/APAP 5-325MG [[place] 5-325] 1 tab PO Q4HR PRN 3 Days #18 tab PRN Reason: Moderate To Severe Pain Ibuprofen [Motrin] 600 mg PO Q6H #60 tab Continue Pnv No.95/Ferrous Fum/Folic AC [ Multivitamin Tablet] 1 tab PO DAILY Discharge Medication List Pnv No.95/Ferrous Fum/Folic AC [ Multivitamin Tablet] 1 tab PO DAILY 07/22/18 [History] HYDROcodone/APAP 5-325MG [[place] 5-325] 1 tab PO Q4HR PRN 3 Days #18 tab 03/15/21 [Rx] Ibuprofen [Motrin] 600 mg PO Q6H #60 tab 03/15/21 [Rx] [place] Ps Cmplx/Vit B12/FA [Niferex-150 Forte] 1 each PO DAILY #30 cap 03/15/21 [Rx] Follow up Appointment(s)/Referral(s): Neeta Garay DO [Primary Care Provider] - 04/23/21 11:30 am (03-22-2021 at 1:30p.m.) Activity/Diet/Wound Care/Special Instructions: Instructions 1. Do not begin any exercise program for 3 weeks. 2. Do not resume sexual relations for 3 weeks or longer if uncomfortable. 3. You may take tub baths or showers at any time. 4. You may use tampons if desired after 3 weeks. 5. Keep the area of episiotomy (stitches) clean and dry. 6. If you are not nursing, wear a good fitting, supportive bra during the day and limit fluid intake for at least 1 week to prevent breast engorgement. 7. Call the office, [phone], within the next week to make appointment for your 6 week checkup if it has not already been made. 8. Report any of the following occurrences to the doctor promptly: a. Heavy, excessive bleeding b. Chills, fever c. Burning or frequency of urination d. Pain or redness and breasts if nursing e. Increasing pain or swelling in episiotomy (stitches). In addition to the above instructions, the following additional should be followed: 1. No heavy lifting or straining (exercising) until after 6 week checkup. 2. Keep abdominal incision clean and dry: You may wear a dressing if more comfortable. 3. Make office appointment for 10 days after going home or as instructed by her doctor. Discharge Disposition: HOME SELF-CARE
[2021-03-16 11:46] VITALS: BP 104/67; PULSE 90; TEMP 97.9
== END 2021-03-16 13:00 | disposition home or self-care (01) | DRG 787 ==
LOC: FBPOP 15:30 → 4FBP 16:14
PROVIDERS: ADMIT Obstetrics & Gynecology; ATTEND Obstetrics & Gynecology
PROC: 10D00Z1 Extraction of Products of Conception, Low, Open Approach (ICD-10-PCS; principal; 2021-03-13 17:30)
DX: O32.1XX0 Maternal care for breech presentation, not applicable or unspecified (principal); Z37.0 Single live birth; D62 Acute posthemorrhagic anemia; Z3A.39 39 weeks gestation of pregnancy; O34.211 Maternal care for low transverse scar from previous cesarean delivery; O99.02 Anemia complicating childbirth; Z87.09 Personal history of other diseases of the respiratory system; O75.89 Other specified complications of labor and delivery; L29.9 Pruritus, unspecified
CPT/HCPCS: 59025; 82803; 85025; 86850; 86900; 86901; 86920; 88307; 99213

== ENCOUNTER 2021-04-04 20:18 | Emergency (ER) | payer BC ==
[2021-04-04] MEDS ORDERED: ACETAMINOPHEN TAB 500 MG TAB PO STA (21:13)
[2021-04-04] MEDS ORDERED: IBUPROFEN 600 MG TAB PO STA (21:13)
[2021-04-04 21:17] VITALS: BP 108/71
--- NOTE | 2021-04-04 21:50 | XR ---
EXAMINATION TYPE: XR chest 2V DATE OF EXAM: 04/04/2021 CLINICAL HISTORY: SOB. Covid 19 positive. TECHNIQUE: Frontal and lateral view of the chest. COMPARISON: None FINDINGS: The cardiomediastinal silhouette is within normal limits for size. Pulmonary vasculature i s normal. Increased opacities of the lung bases on frontal view are likely due to overlapping breast soft tissue as there is no significant focal airspace opacity on lateral view. No pleural effusion. No pneumothorax seen. No acute displaced osseous fracture. IMPRESSION: No acute cardiopulmonary process.
[2021-04-04] MEDS ORDERED: SODIUM CHLORIDE 0.9% 2,000 ML IV ONE (22:12)
[2021-04-04 22:17] LABS: Basophils % (A) 0 %; Eosinophils % (A) 0 %; HCT 35.7 % (34.0-46.0); Hypochromasia Slight; Lymphocytes # (A) 1.2 k/uL (1.0-4.8); Lymphocytes % (A) 33 %; MCH 26.4 pg (25.0-35.0); MCHC 32.6 g/dL (31.0-37.0); MCV 80.9 fL (80.0-100.0); Mean Platelet Volume 8.3; Monocytes # (A) 0.2 k/uL (0-1.0); Monocytes % (A) 5 %; Neutrophils # (A) 2.1 k/uL (1.3-7.7); Neutrophils % (A) 59 %; Platelet Count 258 k/uL (150-450); RBC 4.41 m/uL (3.80-5.40); RDW 14.4 % (11.5-15.5); WBC 3.6 k/uL (3.8-10.6)
--- NOTE | 2021-04-04 22:21 | ED ---
Fever HPI - General Chief Complaint: Fever Stated Complaint: + COVID/WEAK BODY PAIN Time Seen by Provider: 04/04/21 21:22 Source: patient, RN notes reviewed Mode of arrival: ambulatory Limitations: no limitations - History of Present Illness Initial Comments: This a 30-year-old female presents emergency Department chief complaint of fever. Patient states she's been sick for last 5-6 days. Patient states her has COVID-19. Patient states she's had increased weakness, CT, body aches, headache. Patient is not taking any recent Tylenol Motrin. Patient does admit that she is just states that she had some issues with her hemoglobin which she received a transfusion. She has no complaints of vaginal bleeding. - Related Data Home Medications Medication Instructions Recorded Confirmed Pnv No.95/Ferrous Fum/Folic AC 1 tab PO DAILY 07/22/18 04/04/21 [ Multivitamin Tablet] Ascorbic Acid [Vitamin C] 1,000 mg PO DAILY 04/04/21 04/04/21 Cholecalciferol [Vitamin D3 (25 25 mcg PO DAILY 04/04/21 04/04/21 Mcg = 1000 Iu)] Zinc 50 mg PO DAILY 04/04/21 04/04/21 Allergies Allergy/AdvReac Type Severity Reaction Status Date / Time No Known Allergies Allergy Verified 04/04/21 22:18 Review of Systems ROS Statement: Those systems with pertinent positive or pertinent negative responses have been documented in the HPI. ROS Other: All systems not noted in ROS Statement are negative. Past Medical History Past Medical History: Asthma Additional Past Medical History / Comment(s): Missed with D&C 07/22/18, sport 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 anemia History of Any Multi-Drug Resistant Organisms: None Reported Past Surgical History: Section Additional Past Surgical History / Comment(s): [place] teeth, D&C. Past Anesthesia/Blood Transfusion Reactions: No Reported Reaction, Family History of Problems w/ Anesthesia Additional Past Anesthesia/Blood Transfusion Reaction / Comment(s): Mom has had PONV. Past Psychological History: No Psychological Hx Reported Smoking Status: Never smoker Past Alcohol Use History: None Reported Past Drug Use History: None Reported - Past Family History Mother Family Medical History: Thyroid Disorder General Exam Limitations: no limitations General appearance: alert, in no apparent distress Head exam: Present: atraumatic, normocephalic, normal inspection Eye exam: Present: normal appearance, PERRL, EOMI. Absent: scleral icterus, conjunctival injection, periorbital swelling ENT exam: Present: normal exam, normal oropharynx, mucous membranes moist Neck exam: Present: normal inspection. Absent: tenderness, meningismus, lymphadenopathy Respiratory exam: Present: normal lung sounds bilaterally. Absent: respiratory distress, wheezes, rales, rhonchi, stridor Cardiovascular Exam: Present: normal rhythm, tachycardia, normal heart sounds. Absent: systolic murmur, diastolic murmur, rubs, gallop, clicks GI/Abdominal exam: Present: soft, normal bowel sounds. Absent: distended, tenderness, guarding, rebound, rigid Back exam: Absent: CVA tenderness (R), CVA tenderness (L) Course Vital Signs 04/04/21 21:13 Temperature 103.1 F H Pulse Rate 127 H Respiratory 20 Rate Blood Pressure 108/71 O2 Sat by Pulse 97 Oximetry Medical Decision Making - Medical Decision Making X-rays unremarkable. Patient's positive for COVID-19. Patient hemoglobin is stable and improved from prior. Patient was hydrated, given monoclonal antibodies will be discharged stable condition. - Lab Data Result diagrams: 04/04/21 22:00 Lab Results 04/04/21 04/04/21 Range/Units 22:00 22:00 WBC 3.6 L (3.8-10.6) k/uL RBC 4.41 (3.80-5.40) m/uL Hgb 11.7 D (11.4-16.0) gm/dL Hct 35.7 (34.0-46.0) % MCV 80.9 (80.0-100.0) fL MCH 26.4 (25.0-35.0) pg MCHC 32.6 (31.0-37.0) g/dL RDW 14.4 (11.5-15.5) % Plt Count 258 (150-450) k/uL MPV 8.3 Neutrophils % 59 % Lymphocytes % 33 % Monocytes % 5 % Eosinophils % 0 % Basophils % 0 % Neutrophils # 2.1 (1.3-7.7) k/uL Lymphocytes # 1.2 (1.0-4.8) k/uL Monocytes # 0.2 (0-1.0) k/uL Eosinophils # 0.0 (0-0.7) k/uL Basophils # 0.0 (0-0.2) k/uL Hypochromasia Slight Coronavirus (PCR) Detected A (Not Detectd) Disposition Clinical Impression: COVID-19 Disposition: HOME SELF-CARE Condition: Stable Instructions (If sedation given, give patient instructions): Fever in Adults (ED), Coronavirus Disease 2019 (COVID-19) Additional Instructions: Please return to the Emergency Department if symptoms worsen or any other concerns. Is patient prescribed a controlled substance at d/c from ED?: No Referrals: None,Stated [Primary Care Provider] - 1-2 days Time of Disposition: 22:50
[2021-04-04 22:29] LABS: HGB 11.7 gm/dL (11.4-16.0)
[2021-04-04] MEDS ORDERED: SODIUM CHLORIDE 0.9% 50 ML IVPB ONE (23:00)
[2021-04-04] MEDS ORDERED: CASIRIVIMAB/IMDEVIMAB (EUA) 1,200 MG in SODIUM CHLORIDE 0.9% 100 ML IVPB ONE (23:00)
[2021-04-05 00:22] VITALS: PULSE 80; RESP 22; TEMP 98.7
== END 2021-04-05 00:19 | disposition home or self-care (01) ==
LOC: EC 20:18
DX: U07.1 COVID-19 (principal)
CPT/HCPCS: 36415; 85025; 87635; 71046; 99285; 96365; 96361; Q0243

== ENCOUNTER 2021-07-11 06:24 | Day surgery (SDC) | payer BC ==
[2021-07-09 14:36] VITALS: BMI 25.8
--- NOTE | 2021-07-10 14:39 | P.HPOB ---
History of Present Illness H&P Date: 07/10/21 Chief Complaint: Recurrent DEJAH I This is a 30 y.o. female, 4, para 3, who presents for colposcopy with loop electrocautery excision procedure due to recurrent DEJAH I. She has had abnormal pap smears for the last 11 years with persistent low grade, but wanted to wait until she had completed her childbearing before treating. Her last pap smear was 05/03/2021 and showed LGSIL. She had colposcopy on 06/04/2021 and endocervical curetting showed DEJAH I. In light of these findings, she has elected to proceed with the above noted procedure. OB Hx: . History of 1 vaginal delivery, 2 sections, 1 miscarriage. [employer] Hx: No hx of STDs. History of LGSIL on paps for last 11 years. 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 [employer] Review of Systems Constitutional: Denies chills, Denies fever Eyes: denies blurred vision, denies pain Ears, nose, mouth and throat: Denies headache, Denies sore throat Cardiovascular: Denies chest pain, Denies shortness of breath Respiratory: Denies cough Gastrointestinal: Denies abdominal pain, Denies diarrhea, Denies nausea, Denies vomiting Genitourinary: Denies dysuria, Denies hematuria Musculoskeletal: Denies myalgias Integumentary: Denies pruritus, Denies rash Neurological: Denies numbness, Denies weakness Psychiatric: Reports anxiety Past Medical History Past Medical History: Asthma Additional Past Medical History / Comment(s): Sport 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 Anemia. History of Any Multi-Drug Resistant Organisms: None Reported Past Surgical History: Section Additional Past Surgical History / Comment(s): [place] teeth, D&C, Section X2. Past Anesthesia/Blood Transfusion Reactions: No Reported Reaction, Family History of Problems w/ Anesthesia Additional Past Anesthesia/Blood Transfusion Reaction / Comment(s): Mom PONV. Past Psychological History: No Psychological Hx Reported Smoking Status: Never smoker Past Alcohol Use History: Occasional Past Drug Use History: None Reported - Past Family History Mother Family Medical History: Thyroid Disorder Medications and Allergies Home Medications Medication Instructions Recorded Confirmed Type No Known Home Medications 07/09/21 07/11/21 History Allergies Allergy/AdvReac Type Severity Reaction Status Date / Time No Known Allergies Allergy Verified 07/11/21 06:39 Exam Osteopathic Statement: *. No significant issues noted on an osteopathic structural exam other than those noted in the History and Physical/Consult. HEENT: within normal limits Heart: regular rate and rhythm Lungs: clear to auscultation bilaterally Abdomen: soft, non-tender Pelvic: uterus small, non-tender, no adnexal masses Extremities: Neg. Yanira's Assessment and Plan Assessment: Recurrent (1) DEJAH I (cervical intraepithelial neoplasia I) Current Visit: No Status: Acute Code(s): N87.0 - MILD CERVICAL DYSPLASIA SNOMED Code(s): 387368913 Plan: Proceed with colposcopy with loop electrocautery excision procedure. I have discussed the risks, benefits, and alternative therapies for the above- mentioned procedure and for both sedation/anesthesia as well as necessary blood products administration, if indicated, as they pertain to this patient. The patient has indicated her understanding and acceptance of the risks and procedures discussed.
[~2021-07-11 06:24] MED LIST changes: -DEXAMETHASONE SOD PHOSPHATE 10 MG/ML 1 ML VIAL IV ONE; +DEXAMETHASONE SOD PHOSPHATE 4 MG/ML 1 ML VIAL IV ONE; -HYDROmorphone 0.5 MG/0.5 ML SYRINGE IVP PRN; +LIDOCAINE 1% (10MG/ML) FOR IV START INTRADERMA PRN; -SCOPOLAMINE 1.5MG/72HR PATCH TRANSDERM ONE
[2021-07-11] MEDS ORDERED: HYDROmorphone 0.5 MG/0.5 ML SYRINGE IVP PRN (07:00)
[2021-07-11] MEDS ORDERED: ACETIC ACID 15 DROPS/ML DROPS MISCELLANE ONE (07:30)
[2021-07-11] MEDS ORDERED: LIDOCAINE 1%-EPI 1:100,000 20 ML VIAL SQ ONE (07:30)
[2021-07-11] MEDS ORDERED: BUPIVACAINE (PF) 0.5% 30 ML VIAL SQ ONE (07:30)
[2021-07-11] MEDS ORDERED: FERRIC SUBSULFATE (MONSELS) JAR TOPICAL ONE (07:30)
[2021-07-11] MEDS ORDERED: KETOROLAC 15 MG/ML 1 ML VIAL ONE (07:31)
[2021-07-11] MEDS ORDERED: LIDOCAINE 1% INJ 10MG/ML (20 ML MDV) ONE (07:31)
[2021-07-11] MEDS ORDERED: PROPOFOL 10 MG/ML 20 ML VIAL IV ONE (07:31)
[2021-07-11] MEDS ORDERED: .fentaNYL (PF) 50 MCG/ML 2 ML AMP ONE (07:31)
--- NOTE | 2021-07-11 08:08 | P.OP ---
Date of Procedure: 07/11/21 Preoperative Diagnosis: Recurrent DEJAH-1 Postoperative Diagnosis: Same Procedure(s) Performed: Colposcopy with loop electrocautery excision procedure Anesthesia: other (Gen. LMA) Surgeon: Neeta Garay Estimated Blood Loss (ml): 3 Pathology: other (Ectocervix with 12:00 marked with a white stitch and 6:00 marked with a stitch, separate piece is endocervix) Condition: stable Disposition: same day Indications for Procedure: This is a 30 y.o. female, 4, para 3, who presents for colposcopy with loop electrocautery excision procedure due to recurrent DEJAH I. She has had abnormal pap smears for the last 11 years with persistent low grade, but wanted to wait until she had completed her childbearing before treating. Her last pap smear was 05/03/2021 and showed LGSIL. She had colposcopy on 06/04/2021 and endocervical curetting showed DEJAH I. In light of these findings, she has elected to proceed with the above noted procedure. Operative Findings: No abnormalities are seen with either acetic acid or Lugol solution. Cervix is multiparous and transition zone is seen entirely. Description of Procedure: The patient is taken to the operating room where she is placed in the dorsal lithotomy position. She is prepped and draped in the normal sterile fashion. Her bladder is drained with a catheter. A coated bivalve speculum was placed in the patient's vagina. Cervix is visualized and appears multiparous. Colposcopy is then performed using a blue light. Cervix is swabbed with a percent acetic acid. The above noted findings are made. Next the cervix is swabbed with Lugol solution. The above-noted findings are made. No abnormalities are seen with either stain. Transition zone is seen entirely. A 50-50 mixture of 1% lidocaine with epinephrine and half percent Marcaine are then injected with a spinal needles circumvention around the cervix. Approximately 6. Next the large loop was used to swipe from left to right using 35 W of cutting power. The specimen is removed from the field and labeled at the 12 o'clock position with a suture and the 6 o'clock position with a black suture. Next a small loop is used to remove the endocervix. This was sent as a separate piece. Next a ball-tipped cautery is used with 35 W of power to cauterize the bed left behind. Excellent hemostasis is noted. Monsel solution is applied. Good hemostasis is noted. All instruments are removed from the vagina. All sponge and needle counts are correct. The patient is taken to recovery room in stable condition.
[2021-07-11 08:17] VITALS: TEMP 97
[2021-07-11 08:18] VITALS: RESP 16
[2021-07-11 09:13] VITALS: BP 97/67; PULSE 72
== END 2021-07-11 09:43 | disposition home or self-care (01) ==
LOC: OR 06:24
PROVIDERS: ATTEND Obstetrics & Gynecology
DX: N87.0 Mild cervical dysplasia (principal); J45.909 Unspecified asthma, uncomplicated; D64.9 Anemia, unspecified; Z98.891 History of uterine scar from previous surgery; Z98.890 Other specified postprocedural states; Z83.49 Family history of other endocrine, nutritional and metabolic diseases
CPT/HCPCS: 81025; 88307; 57460; J2250; J1100; J2405; J2001; J3010; J1885; J2704

== ENCOUNTER → 2023-02-23 | Outpatient (CLI) | payer BC ==
--- NOTE | 2023-02-23 11:03 | USB ---
Reason for Exam: Clinical finding. Patient History: Menarche at age 13. First Full-Term at age 19. Patient has history of breast feeding. Technique: Method: Targeted. Findings: The lower section of the breast of the right breast, the axilla of the right breast and the retroareolar of the right breast were scanned. Imaged: Ultrasound imaging of: Area of concern, retroareolar region and axilla. No evidence for organizing fluid collection or mass. Overall Assessment: Negative, BI-RAD 1 Management: Screening Mammogram of both breasts at age 41. A clinical breast exam by your physician is recommended on an annual basis and results should be correlated with mammographic findings. This exam should not preclude additional follow-up of suspicious palpable abnormalities. Results were given to the patient verbally at the time of exam. Electronically signed and approved by: Armani Carvajal DO
[2023-02-23 16:26] LABS: Chol/HDL Ratio 3.61 Ratio; Glucose 95 mg/dL (70-110); LDL Cholesterol,Calculated 117.1 mg/dL (0.0-131.0); T4, Free (Free Thyroxine) 1.04 ng/dL (0.80-1.80)
--- NOTE | 2023-03-03 12:25 | MM ---
Reason for Exam: Clinical finding. Baseline mammogram. Indicated Problems: Lump or thickening of the right side for 5 Day(s). Patient History: Menarche at age 13. First Full-Term at age 19. Patient has history of breast feeding. Last menstrual period: 02/06/2023 Prior Study Comparison: Patient's first Mammogram. Tissue Density: There are scattered fibroglandular densities. Findings: Analyzed By CAD. No new suspicious masses, calcifications or distortions. Overall Assessment: Incomplete: need additional imaging evaluation, BI-RAD 0 Management: Diagnostic Breast Ultrasound of the right breast. Results were given to the patient verbally at the time of exam. Patient should continue monthly self-breast exams. A clinical breast exam by your physician is recommended on an annual basis. This exam should not preclude additional follow-up of suspicious palpable abnormalities. Note on Steph scores and lifetime risk: 1. A Steph score greater than 3% is considered moderate risk. If this is the case, consider specialist referral to assess eligibility for a risk reducing agent. 2. If overall lifetime risk for the development of breast cancer is 20% or higher, the patient may qualify for future screening with alternating mammogram and breast MRI. Electronically signed and approved by: Armani Carvajal DO
== END | disposition home or self-care (01) ==
LOC: RADMAMWWP 09:45
PROVIDERS: ATTEND Obstetrics & Gynecology
DX: Z13.220 Encounter for screening for lipoid disorders (principal); Z13.1 Encounter for screening for diabetes mellitus; N63.0 Unspecified lump in unspecified breast
CPT/HCPCS: 77062; 77066; 80061; 82947; 84439; 84443